=== PATIENT | female | born 1985 | race American Indian/Alaskan Native ===

== ENCOUNTER 2017-11-06 18:41 | Emergency (ER) | payer MEDICAID ==
[2017-11-06 18:47] VITALS: BP 149/88
== END 2017-11-07 02:08 | disposition left against medical advice (07) ==
LOC: ED 18:41
DX: R06.02 Shortness of breath (principal); Z53.21 Procedure and treatment not carried out due to patient leaving prior to being seen by health care provider
CPT/HCPCS: 93005; 93010